=== PATIENT | male | born 1965 | race Caucasian/White ===

== ENCOUNTER 2018-10-16 20:19 | Emergency (ER) | payer OTHER ==
[2018-10-16 20:31] VITALS: BP 148/88; PULSE 78; TEMP 99.3; BMI 27.3
--- NOTE | 2018-10-16 20:40 | PDOC ---
Attending Attestation - HPI HPI: 10/16/18 21:39 The patient is a 53 year old male with a PMH of kidney stones who presents to the ED with right flank pain for the past day. Patient states the right flank pain radiates to the right lower quadrant with associated nausea and five episodes of NB, NB vomit. He reports he had kidney stones back in August and experienced similar symptoms then. Patient ate [place] food yesterday, but states other family members had the same food and did not experience similar symptoms as he did. Patient denies fevers, chills, diarrhea, constipation, testicular pain, dysuria , hematuria, chest pain, or shortness of breath. Allergies: NKDA Social Hx: Social drinking. Surgerical Hx: No reported alcohol, drug or cigarette use. - Physicial Exam PE: 10/16/18 22:59 ADULT EXAM GENERAL: Awake, alert, and fully oriented, in no acute distress HEAD: No signs of trauma EYES: PERRLA, EOMI, sclera anicteric, conjunctiva clear ENT: Auricles normal inspection, hearing grossly normal, nares patent, oropharynx clear without exudates. Moist mucosa NECK: Normal ROM, supple, no lymphadenopathy, JVD, or masses LUNGS: Breath sounds equal, clear to auscultation bilaterally. No wheezes, and no crackles HEART: Regular rate and rhythm, normal S1 and S2, no murmurs, rubs or gallops BACK: No CVA tenderness. ABDOMEN: Soft, nontender, normoactive bowel sounds. No guarding, no rebound. No masses. EXTREMITIES: Normal range of motion, no edema. No clubbing or cyanosis. No cords, erythema, or tenderness NEUROLOGICAL: Cranial nerves II through XII grossly intact. Normal speech, normal gait SKIN: No rashes. <Emilia Singleton - Last Filed: 10/16/18 22:59> - Resident Resident Name: Ana Paula Gauthier - ED Attending Attestation I have performed the following: I have examined & evaluated the patient, The case was reviewed & discussed with the resident, I agree w/resident's findings & plan - Medical Decision Making 10/16/18 23:03 Patient Name: ANTOINE DONAHUE THIS IS A PRELIMINARY REPORT FROM [facility] DATE OF SERVICE: 2018-10-16 22:03:34 IMAGES: [id number] EXAM: SPIRAL- RENAL-STONE CT History: 53-year-old male evaluate for stone disease Comparison: None Procedure: CT scan abdomen and pelvis; stone protocol, dated October 16, 2018 . Axial images obtained followed by coronal and sagittal reconstructions. Study performed unenhanced. Findings: The unenhanced liver, spleen, pancreas, and adrenal glands are unremarkable. Gallbladder and gallbladder fossa normal in appearance. Nonobstructing 7 mm calculus lower pole collecting system left kidney. No evidence of left-sided hydronephrosis, left hydroureter or bladder calculi. There is a 6 mm calculus distal right ureter, just proximal to the right UV junction. Moderate right-sided hydronephrosis and hydroureter seen proximal to this stone. Inflammatory changes noted right perinephric space. Suspect small intracortical, cyst lateral cortex lower pole right kidney. Rectum and perirectal space unremarkable. Terminal ileum and appendix within normal limits. No inflammatory changes of the large or small bowel identified. No free intraperitoneal air or fluid identified. No abdominal wall defects noted. Impression: 1. Limited CT scan abdomen and pelvis, unenhanced. 2. Moderate right-sided hydronephrosis and hydroureter related to a 6 mm calculus just proximal to the right UV junction. 3. Nonobstructing 7 mm calculus lower pole collecting system left kidney. 4. No evidence of GI tract obstruction or inflammatory change. Terminal ileum and appendix within normal limits 10/16/18 23:43 Pt's UA has hematuria but only 5 WBC; no leukocytes; no need for abx; pt's stone is is distal ureter @ UPJ; currently, pt has no abd or flank pain. Stone likely passed. He will be referred to urology. <Faith Plasencia - Last Filed: 10/16/18 23:45>
[2018-10-16] MEDS ORDERED: ONDANSETRON 4 MG/2 ML VIAL IVPB ONE (20:42)
[2018-10-16] MEDS ORDERED: KETOROLAC TROMETHAMINE 30 MG/1 ML VIAL IVPUSH ONE (20:42)
[2018-10-16] MEDS ORDERED: SODIUM CHLORIDE 1,000 ML IV STA (20:42)
--- NOTE | 2018-10-16 20:59 | PDOC ---
History of Present Illness - General Chief Complaint: Nausea/Vomiting Stated Complaint: VOMITING Time Seen by Provider: 10/16/18 20:29 History Source: Patient, Friend Exam Limitations: Language Barrier - History of Present Illness Initial Comments: 10/16/18 20:49 Pt is a 53yo M with PMH of kidney stones presenting to ED with complaints of R flank pain that radiates to the RLQ into the groin x1 day associated with nausea and 6 episodes of nbnb emesis. Pt states that 2 months ago he had a kidney stone and it felt like what he is experiencing today. He denies fevers, chills, diarrhea, constipation, testicular pain, discharge, dysuria, hematuria, chest pain, SOB. PMD: none PMH: none PSH: none Allergies: nkda Social: occasional alcohol use Meds: none Past History - Past Medical History Allergies/Adverse Reactions: Allergies Allergy/AdvReac Type Severity Reaction Status Date / Time No Known Allergies Allergy Verified 10/16/18 20:31 Home Medications: Ambulatory Orders Ibuprofen 600 mg PO TID #21 tablet 10/16/18 Ondansetron [Zofran -] 4 mg PO TID #15 tablet 10/16/18 Tamsulosin HCl [Flomax] 0.4 mg PO DAILY #7 capsule 10/16/18 COPD: No Other medical history: kidney stone - Immunization History Immunization Up to Date: Yes - Suicide/Smoking/Psychosocial Hx Smoking History: Former smoker Have you smoked in the past 12 months: No Information on smoking cessation initiated: No Review of Systems - Review of Systems Constitutional: No: Chills, Fever HEENTM: No: Symptoms Reported Respiratory: No: Symptoms reported Cardiac (ROS): No: Symptoms Reported ABD/GI: Yes: See HPI, Nausea, Vomiting. No: Constipated, Diarrhea : Yes: Flank Pain. No: Burning, Hematuria, Pain, Urgency, Testicular Mass, Testicular Swelling Musculoskeletal: No: Back Pain, Joint Pain, Muscle Pain Integumentary: No: Symptoms Reported Neurological: No: Symptoms reported *Physical Exam - Vital Signs Last Vital Signs Temp Pulse Resp BP Pulse Ox 99.3 F 78 20 148/88 100 10/16/18 20:29 10/16/18 20:29 10/16/18 20:29 10/16/18 20:29 10/16/18 20:29 - Physical Exam General Appearance: Yes: Nourished, Appropriately Dressed, Mild Distress HEENT: positive: EOMI, MARY Neck: positive: Trachea midline, Supple. negative: Lymphadenopathy (R), Lymphadenopathy (L) Respiratory/Chest: positive: Lungs Clear, Normal Breath Sounds Cardiovascular: positive: Regular Rhythm, Regular Rate, S1, S2. negative: Edema , JVD, Murmur Vascular Pulses: Carotid (R): 2+, Carotid (L): 2+ Gastrointestinal/Abdominal: positive: Normal Bowel Sounds, Soft, Tenderness (RLQ ). negative: Distended, Guarding, Rebound Musculoskeletal: positive: CVA Tenderness (R). negative: CVA Tenderness (L), Vertebral Tenderness Extremity: positive: Normal Capillary Refill, Pelvis Stable Integumentary: positive: Normal Color, Dry, Warm Neurologic: positive: bankruptcy manager II-XII NML intact, Fully Oriented, Alert, Normal Mood/ Affect, Normal Response, Motor Strength 5/5 Moderate Sedation - Procedure Monitoring Vital Signs: Procedure Monitoring Vital Signs Temperature 99.3 F 10/16/18 20:29 Pulse Rate 78 10/16/18 20:29 Respiratory Rate 20 10/16/18 20:29 Blood Pressure 148/88 10/16/18 20:29 O2 Sat by Pulse Oximetry (%) 100 10/16/18 20:29 ED Treatment Course - LABORATORY CBC & Chemistry Diagram: 10/16/18 20:41 10/16/18 20:41 - RADIOLOGY Radiology Studies Ordered: Category Date Time Status SPIRAL- RENAL-STONE CT [CT] Stat CT Scan 10/16/18 20:42 Ordered Medical Decision Making - Medical Decision Making 10/16/18 20:52 Pt is a 53yo M with PMH of kidney stones presenting to ED with complaints of R flank pain that radiates to the RLQ into the groin x1 day associated with nausea and 6 episodes of nbnb emesis. Pt states that 2 months ago he had a kidney stone and it felt like what he is experiencing today. He denies fevers, chills, diarrhea, constipation, testicular pain, discharge, dysuria, hematuria, chest pain, SOB. Vitals: wnl PE: R CVA tenderness, RLQ tenderness. Ddx includes but not limited to nephrolithiasis, pyelonephritis, appendicitis, testicular torsion, epidydimooorchiditis, colitis, cholecystitis, pancreatitis. lower suspicion for testicular pathology given negative ROS for testicular symptoms. Pt has had pain like this before, has R CVA tenderness, high suspicion for nephrolithiasis. -cbc, cmp, ua, ucx -CT -iv fluids, zofran, toradol 10/16/18 22:41 Pt appears comfortable. Reports feeling better Labs wnl. CT done, read pending. UA pending CT showed stone in L kidney and 6mm stone at R UVJ with hydronephrosis of R kidney UA negative for infection. Does not appear to be obstructing however not officially stated on CT read. Given tamsulosin in ED. Rx for ibuprofen, Flomax and Zofran. Pt given referral to urology. Pt does not have septic stone, will probably pass. Pt is hemodynamically stable, afebrile and ambulatory. Given return precautions. *DC/Admit/Observation/Transfer Diagnosis at time of Disposition: Nephrolithiasis - Discharge Dispostion Disposition: HOME Condition at time of disposition: Improved - Prescriptions Prescriptions: Ibuprofen 600 mg PO TID #21 tablet Ondansetron [Zofran -] 4 mg PO TID #15 tablet Tamsulosin HCl [Flomax] 0.4 mg PO DAILY #7 capsule - Referrals Referrals: ON STAFF,NOT [Primary Care Provider] - Perry Leslie MD [Staff Physician] - - Patient Instructions Printed Discharge Instructions: DI for Kidney Stones Additional Instructions: You were seen in the emergency room today for pain. You have a kidney stone. There is one on the right side in the ureter and one in the left kidney. The stone in the ureter is 6mm. This should pass. 3 prescriptions were sent to your pharmacy. Take as directed. Please make sure to follow up with a urologist. You can see Dr. Leslie . Please try to make an appointment this week. Please make sure you see your primary care doctor as well sometime this week. Stay well hydrated! Drink lots of water. Stay away from coffee and sodas. Come back to the emergency room if pain gets worse, you are unable to urinate, you develop fever or if any new concerning symptom develops. Thank you - Post Discharge Activity
[2018-10-16 21:01] LABS: BASO % 0.3 % (0-2.0); EOS % 0.2 % (0-4.5); HEMATOCRIT 38.5 % (35.4-49); HEMOGLOBIN 13.8 GM/dL (11.7-16.9); LYMPH % 3.2 % (8-40); MCH 30.7 pg (25.7-33.7); MCHC 35.7 g/dl (32.0-35.9); MEAN PLT VOLUME 8.7 fl (7.5-11.1); MONO % 3.1 % (3.8-10.2); NEUT % 93.2 % (42.8-82.8); PLATELET COUNT 246 K/MM3 (134-434); RBC 4.48 M/mm3 (4.00-5.60); WHITE BLOOD COUNT 10.3 K/mm3 (4.0-10.0)
[2018-10-16] MEDS ORDERED: ONDANSETRON 4 MG/2 ML VIAL ONE (21:10)
[2018-10-16] MEDS ORDERED: KETOROLAC TROMETHAMINE 30 MG/1 ML VIAL ONE (21:10)
[2018-10-16 21:17] LABS: ALBUMIN 4.3 g/dl (3.4-5.0); ALK PHOS 49 U/L (45-117); ANION GAP 9 MMOL/L (8-16); BILIRUBIN,TOTAL 0.6 mg/dL (0.2-1); BLOOD UREA NITROGEN 17 mg/dL (7-18); CALCIUM 8.9 mg/dL (8.5-10.1); CHLORIDE 103 mmol/L (98-107); CO2 25 mmol/L (21-32); GLUCOSE,RANDOM 147 mg/dL (74-106); SGOT/AST 21 U/L (15-37); SGPT/ALT 24 U/L (13-61); SODIUM 137 mmol/L (136-145); TOT PROT 7.4 g/dl (6.4-8.2)
[2018-10-16 21:52] LABS: ANISOCYTOSIS 1+; MACROCYTOSIS 1+
[2018-10-16 21:53] LABS: PLATELET ESTIMATE ADEQUATE
[2018-10-16 23:24] LABS: URINE APPEARANCE CLEAR; URINE BILIRUBIN NEGATIVE (<2.0 mg/dL); URINE COLOR YELLOW; URINE GLUCOSE (UA) NEGATIVE (NEGATIVE); URINE KETONE 2+ (NEGATIVE); URINE LEUK ESTERASE NEGATIVE (NEGATIVE); URINE NITRITE NEGATIVE (NEGATIVE); URINE PROTEIN 1+ (NEGATIVE)
[2018-10-16 23:36] LABS: EPI CELLS RARE /HPF (FEW); URINE HYALINE CAST 1 /lpf; URINE MUCUS FEW
[2018-10-16] MEDS ORDERED: TAMSULOSIN HCL 0.4 MG CAP PO ONE (23:40)
== END 2018-10-17 00:17 | disposition home or self-care (01) ==
LOC: JER 20:19
PROC: 3E033GC Introduction of Other Therapeutic Substance into Peripheral Vein, Percutaneous Approach (ICD-10-PCS; principal; 2018-10-16)
PROC: 3E0333Z Introduction of Anti-inflammatory into Peripheral Vein, Percutaneous Approach (ICD-10-PCS; 2018-10-16)
DX: N13.2 Hydronephrosis with renal and ureteral calculous obstruction (principal); Z87.442 Personal history of urinary calculi
CPT/HCPCS: 36415; 74176; 80053; 81003; 81015; 85025; 87086; 99283-25; J7030